=== PATIENT | female | born 1960 | race Caucasian/White ===

== ENCOUNTER 2017-06-21 04:38 | Emergency (ER) | payer SELFPAY ==
[~2017-06-21] VITALS: Ht 182.9 cm; Wt 110.0 kg
[~2017-06-21 04:38] MED LIST: ALPR-475 PO; AMLO10TA4 PO; FLUO20CA19 PO; LISI-170 PO; NAPR220T77 PO; OXYC15TA PO; [UNRECOGNIZED DRUG - REMARK] PO
[2017-06-21] MEDS ORDERED: DIAZEPAM 5 MG TABLET PO ONE (05:30)
[2017-06-21] MEDS ORDERED: CARV6.252 PO (05:32)
[2017-06-21] MEDS ORDERED: ALPR-475 PO (05:32)
[2017-06-21] MEDS ORDERED: ONDANSETRON ODT 4 MG ONE (05:34)
[2017-06-21] MEDS ORDERED: DIAZEPAM 5 MG TABLET ONE (05:34)
[2017-06-21] MEDS ORDERED: ONDANSETRON ODT 4 MG PO ONE (06:00)
[2017-06-21 06:15] LABS: MICROSCOPIC NOT IND
[2017-06-21 06:23] LABS: CULTURE INDICATED? NO
[2017-06-21 06:30] VITALS: BP 148/85
== END 2017-06-21 07:01 | disposition home or self-care (01) ==
LOC: ED 06:02
DX: R11.2 Nausea with vomiting, unspecified (principal); F13.239 Sedative, hypnotic or anxiolytic dependence with withdrawal, unspecified; F41.9 Anxiety disorder, unspecified
CPT/HCPCS: 81003; 93005; 99285; Q0162

== ENCOUNTER → 2017-09-11 | Outpatient (CLI) | payer MEDICAID ==
[~2017-09-11] MED LIST changes: +CARV6.252 PO
== END ==
LOC: CFH 13:10
PROVIDERS: ATTEND Internal Medicine
DX: M50.222 Other cervical disc displacement at C5-C6 level (principal); M50.322 Other cervical disc degeneration at C5-C6 level; M51.36 Other intervertebral disc degeneration, lumbar region; M16.0 Bilateral primary osteoarthritis of hip
CPT/HCPCS: 72141; 72148

== ENCOUNTER → 2018-09-03 | Outpatient (CLI) | payer MEDICAID | END | disposition home or self-care (01) | LOC: CFH 08:19 | PROVIDERS: ATTEND Nurse Practitioner | DX: M54.16 Radiculopathy, lumbar region (principal) | CPT/HCPCS: 72110 ==